=== PATIENT | male | born 1985 | race Caucasian/White ===

== ENCOUNTER 2018-04-27 14:18 | Emergency (ER) | payer OTHER ==
[~2018-04-27] VITALS: Ht 167.6 cm; Wt 83.0 kg
[2018-04-27] MEDS ORDERED: ACETAMINOPHEN 500 MG TABLET PO ONE (16:45)
[2018-04-27 17:28] VITALS: BP 145/82
== END 2018-04-27 17:52 | disposition home or self-care (01) ==
LOC: EMS 14:19
DX: S90.112A Contusion of left great toe without damage to nail, initial encounter (principal); Z88.5 Allergy status to narcotic agent; F12.90 Cannabis use, unspecified, uncomplicated; Z87.891 Personal history of nicotine dependence; W22.8XXA Striking against or struck by other objects, initial encounter; Y93.89 Activity, other specified; Y92.89 Other specified places as the place of occurrence of the external cause; Y99.8 Other external cause status

== ENCOUNTER 2020-11-07 15:17 | Emergency (ER) | payer OTHER ==
[~2020-11-07] VITALS: Ht 167.6 cm; Wt 84.1 kg
[2020-11-07 15:19] VITALS: BP 155/97
[2020-11-07] MEDS ORDERED: ACET-3385 PO (15:21)
[2020-11-07] MEDS ORDERED: AMOX250C4 PO (15:21)
[2020-11-07] MEDS ORDERED: IBUP-2070 PO (15:21)
== END 2020-11-07 16:07 | disposition home or self-care (01) ==
LOC: EMS 15:18
DX: K08.89 Other specified disorders of teeth and supporting structures (principal); F12.90 Cannabis use, unspecified, uncomplicated; Z87.891 Personal history of nicotine dependence; Z88.5 Allergy status to narcotic agent
CPT/HCPCS: 99283; Z7502

== ENCOUNTER 2021-03-10 12:41 | Emergency (ER) | payer OTHER ==
[~2021-03-10] VITALS: Ht 167.6 cm; Wt 81.8 kg
[~2021-03-10 12:41] MED LIST: ACET-3385 PO; AMOX250C4 PO; IBUP-2070 PO
[2021-03-10 13:36] VITALS: BP 156/79
[2021-03-10] MEDS ORDERED: IBUPROFEN 800 MG TABLET PO ONE (14:00)
== END 2021-03-10 14:31 | disposition home or self-care (01) ==
LOC: EMS 12:41
DX: M25.511 Pain in right shoulder (principal); Z87.891 Personal history of nicotine dependence; Z88.5 Allergy status to narcotic agent
CPT/HCPCS: 99283